=== PATIENT | male | born 1965 | race African-American/Black ===

== ENCOUNTER 2023-11-23 10:41 | Inpatient (IN) | payer OTHER ==
[2023-11-23 11:26] VITALS: BMI 24.2
[2023-11-23] MEDS ORDERED: BISMUTH SUBSALICYLATE 524 MG/30 ML PO PRN (13:59)
[2023-11-23] MEDS ORDERED: BENZOCAINE/MENTHOL (CHLORASEPTIC ) LOZENGE MM PRN (13:59)
[2023-11-23] MEDS ORDERED: guaiFENesin 600 MG TABLET.ER (FP) PO PRN (13:59)
[2023-11-23] MEDS ORDERED: IBUPROFEN 400 MG TABLET (FP) PO PRN (13:59)
[2023-11-23] MEDS ORDERED: MAG HYDROX/AL HYDROX/SIMETH 30 ML UNIT-DOSE CUP PO PRN (13:59)
[2023-11-23] MEDS ORDERED: BENZONATATE 200 MG CAPSULE PO PRN (13:59)
[2023-11-23] MEDS ORDERED: NALOXONE HCL (KLOXXADO) 8 MG SPRAY NS PRN (13:59)
[2023-11-23] MEDS ORDERED: POLYETHYLENE GLYCOL (HEALTHYLAX) 3350 17 GM PACKET PO PRN (13:59)
[2023-11-23] MEDS ORDERED: LOPERAMIDE HCL 2 MG CAPSULE PO PRN (13:59)
[2023-11-23] MEDS ORDERED: NALOXONE HCL 0.4 MG/ML VIAL IM PRN (13:59)
[2023-11-23] MEDS ORDERED: MAGNESIUM HYDROX 2400MG/30ML ORAL SUSPENSION 30 ML CUP PO PRN (13:59)
[2023-11-23] MEDS ORDERED: ACETAMINOPHEN 325 MG TABLET (FP) PO PRN (13:59)
[2023-11-23] MEDS ORDERED: IBUPROFEN 600 MG TABLET (FP) PO PRN (13:59)
[2023-11-23] MEDS ORDERED: DICYCLOMINE HCL 10 MG CAPSULE PO PRN (13:59)
[2023-11-23] MEDS ORDERED: ONDANSETRON *ODT* 4 MG TABLET SL PRN (13:59)
[2023-11-23] MEDS: hydrOXYzine PAMOATE 25 MG CAPSULE (FP) PO PRN (17:22)
[2023-11-23] MEDS: METHOCARBAMOL 500 MG TABLET PO PRN (17:22)
[2023-11-23] MEDS: METOPROLOL TARTRATE 50 MG TABLET (FP) PO ONE (17:33)
[2023-11-23] MEDS: MELATONIN 5 MG TABLETS PO SCH (22:32)
[2023-11-23] MEDS: THIAMINE 100 MG TABLET PO SCH (22:32)
[2023-11-24 09:26] LABS: HEMATOCRIT 37.8 % (35.4-49); HEMOGLOBIN 11.9 GM/dL (11.7-16.9); MCH 24.3 pg (25.7-33.7); MCHC 31.6 g/dl (32.0-35.9); MEAN PLT VOLUME 8.2 fl (7.5-11.1); PLATELET COUNT 287 10^3/uL (134-434); RDW 17.2 % (11.9-15.9); WHITE BLOOD COUNT 5.9 K/mm3 (4.0-10.0)
[2023-11-24 09:48] LABS: POTASSIUM 4.4 mmol/L (3.5-5.1)
[2023-11-24] MEDS ORDERED: chlordiazePOXIDE HCL 25 MG CAPSULE PO PRN (09:56)
[2023-11-24 10:03] LABS: CALCIUM 8.5 mg/dL (8.5-10.1)
[2023-11-24 10:04] LABS: ALBUMIN 3.2 g/dl (3.4-5.0); BLOOD UREA NITROGEN 10.2 mg/dL (7-18)
[2023-11-24 10:07] LABS: CREATININE 0.6 mg/dL (0.55-1.3)
[2023-11-24 10:08] LABS: BILIRUBIN,TOTAL 0.4 mg/dL (0.2-1); TOT PROT 6.4 g/dl (6.4-8.2)
[2023-11-24] MEDS: PRENATAL VITAMINS W/ FOLIC ACID TABLET (FP) PO SCH (10:13)
[2023-11-24] MEDS: NICOTINE 21 MG/24 HOURS TOPICAL PATCH TD SCH (10:13)
[2023-11-24] MEDS: HALOPERIDOL 5 MG TABLET PO SCH (10:24)
[2023-11-24] MEDS: chlordiazePOXIDE HCL 25 MG CAPSULE PO SCH (10:24)
[2023-11-24] MEDS: BENZTROPINE MESYLATE 1 MG TABLET PO SCH (10:24)
[2023-11-24] MEDS: amLODIPine BESYLATE 5 MG TABLET (FP) PO SCH (10:24)
[2023-11-24] MEDS: LACTULOSE 20 GM/30 ML UDC (FOR ORAL USE ONLY) PO SCH (19:15)
[2023-11-25] MEDS: chlordiazePOXIDE HCL 10 MG CAPSULE PO SCH (05:41)
[2023-11-25] MEDS: amLODIPine BESYLATE 10 MG TABLET (FP) PO SCH (10:54)
[2023-11-25] MEDS: NICOTINE POLACRILEX 2 MG GUM BUC PRN (22:16)
[2023-11-26] MEDS ORDERED: chlordiazePOXIDE HCL 10 MG CAPSULE PO PRN
[2023-11-26] MEDS: chlordiazePOXIDE HCL 10 MG CAPSULE PO SCH (05:15)
[2023-11-26 06:20] VITALS: TEMP 97.7
[2023-11-26 09:42] VITALS: BP 153/90; PULSE 96; RESP 18
[2023-11-27] MEDS ORDERED: chlordiazePOXIDE HCL 10 MG CAPSULE PO ONE (05:00)
== END 2023-11-26 10:46 | disposition home or self-care (01) | DRG 897 ==
LOC: YASAS 10:41 → Y6N 14:33
PROVIDERS: ADMIT Allergy & Immunology; ATTEND Surgery
PROC: HZ2ZZZZ Detoxification Services for Substance Abuse Treatment (ICD-10-PCS; principal; 2023-11-23)
DX: F10.230 Alcohol dependence with withdrawal, uncomplicated (principal); Z59.01 Sheltered homelessness; F12.20 Cannabis dependence, uncomplicated; F17.210 Nicotine dependence, cigarettes, uncomplicated; F20.9 Schizophrenia, unspecified; I10 Essential (primary) hypertension
CPT/HCPCS: 36415; 80053; 80305; 80307; 82140; 85027; 86780; 93005; 93010

== ENCOUNTER 2024-06-16 13:18 | Inpatient (IN) | payer OTHER ==
[2024-06-16 14:18] VITALS: BMI 24.2
[2024-06-16] MEDS ORDERED: BISMUTH SUBSALICYLATE 262 MG/15 ML BTL PO PRN (14:40)
[2024-06-16] MEDS ORDERED: MAG HYDROX/AL HYDROX/SIMETH 30 ML UNIT-DOSE CUP PO PRN (14:40)
[2024-06-16] MEDS ORDERED: BENZOCAINE/MENTHOL (CHLORASEPTIC ) LOZENGE MM PRN (14:40)
[2024-06-16] MEDS ORDERED: MAGNESIUM HYDROX 2400MG/30ML ORAL SUSPENSION 30 ML CUP PO PRN (14:40)
[2024-06-16] MEDS ORDERED: DICYCLOMINE HCL 10 MG CAPSULE PO PRN (14:40)
[2024-06-16] MEDS ORDERED: LORazepam 1 MG TABLET PO PRN (14:40)
[2024-06-16] MEDS ORDERED: BENZONATATE 200 MG CAPSULE PO PRN (14:40)
[2024-06-16] MEDS ORDERED: IBUPROFEN 400 MG TABLET (FP) PO PRN (14:40)
[2024-06-16] MEDS ORDERED: IBUPROFEN 600 MG TABLET (FP) PO PRN (14:40)
[2024-06-16] MEDS ORDERED: NICOTINE POLACRILEX 2 MG GUM BUC PRN (14:40)
[2024-06-16] MEDS ORDERED: guaiFENesin 600 MG TABLET.ER (FP) PO PRN (14:40)
[2024-06-16] MEDS ORDERED: ONDANSETRON *ODT* 4 MG TABLET SL PRN (14:40)
[2024-06-16] MEDS ORDERED: POLYETHYLENE GLYCOL (HEALTHYLAX) 3350 17 GM PACKET PO PRN (14:40)
[2024-06-16] MEDS ORDERED: NICOTINE POLACRILEX 2 MG LOZENGE BC PRN (14:40)
[2024-06-16] MEDS ORDERED: LOPERAMIDE HCL 2 MG CAPSULE PO PRN (14:40)
[2024-06-16] MEDS ORDERED: NALOXONE (NARCAN) HCL 4 MG/0.1 ML SPRAY NS PRN (14:40)
[2024-06-16] MEDS ORDERED: amLODIPine BESYLATE 10 MG TABLET (FP) PO SCH (14:45)
[2024-06-16] MEDS: ACETAMINOPHEN 325 MG TABLET (FP) PO PRN (17:51)
[2024-06-16] MEDS: amLODIPine BESYLATE 10 MG TABLET (FP) PO SCH (17:51)
[2024-06-16] MEDS: LORazepam 2 MG TABLET PO SCH (23:25)
[2024-06-16] MEDS: THIAMINE 100 MG TABLET PO SCH (23:26)
[2024-06-16] MEDS: MELATONIN 5 MG TABLETS PO SCH (23:26)
[2024-06-17] MEDS: PRENATAL VITAMINS W/ FOLIC ACID TABLET (FP) PO SCH (10:14)
[2024-06-18] MEDS: LORazepam 1 MG TABLET PO SCH (05:54)
[2024-06-18] MEDS: METHOCARBAMOL 500 MG TABLET PO PRN (09:26)
[2024-06-18] MEDS: hydrOXYzine PAMOATE 25 MG CAPSULE (FP) PO PRN (09:26)
[2024-06-18] MEDS: LACTULOSE 20 GM/30 ML UDC (FOR ORAL USE ONLY) PO SCH (09:26)
[2024-06-18 09:34] LABS: POTASSIUM 4.2 mmol/L (3.5-5.1)
[2024-06-18 09:36] LABS: BLOOD UREA NITROGEN 7.1 mg/dL (7-18); CALCIUM 9.7 mg/dL (8.5-10.1)
[2024-06-18 09:37] LABS: ALBUMIN 3.7 g/dl (3.4-5.0)
[2024-06-18 09:38] LABS: CREATININE 0.6 mg/dL (0.55-1.3)
[2024-06-18 09:41] LABS: BILIRUBIN,TOTAL 0.2 mg/dL (0.2-1); TOT PROT 7.7 g/dl (6.4-8.2)
[2024-06-18 09:47] LABS: HEMATOCRIT 40.5 % (35.4-49); HEMOGLOBIN 12.3 GM/dL (11.7-16.9); MCHC 30.4 g/dl (32.0-35.9); MEAN PLT VOLUME 8.3 fl (7.5-11.1); PLATELET COUNT 274 10^3/uL (134-434); RBC 5.12 M/mm3 (4.00-5.60); WHITE BLOOD COUNT 6.5 K/mm3 (4.0-10.0)
[2024-06-18] MEDS: RIFAXIMIN 200 MG TABLET PO SCH (14:21)
[2024-06-19] MEDS ORDERED: LORazepam 0.5 MG TABLET PO PRN
[2024-06-19] MEDS: LORazepam 0.5 MG TABLET PO SCH (05:53)
[2024-06-20] MEDS: LORazepam 0.5 MG TABLET PO ONE (05:52)
[2024-06-20 09:01] VITALS: BP 125/79; PULSE 62; RESP 16; TEMP 97.7
== END 2024-06-20 11:21 | disposition home or self-care (01) | DRG 897 ==
LOC: YASAS 13:18 → Y6N 17:06
PROVIDERS: ADMIT Allergy & Immunology; ATTEND Surgery
PROC: HZ2ZZZZ Detoxification Services for Substance Abuse Treatment (ICD-10-PCS; principal; 2024-06-16)
DX: F10.230 Alcohol dependence with withdrawal, uncomplicated (principal); Z59.01 Sheltered homelessness; F12.20 Cannabis dependence, uncomplicated; F17.210 Nicotine dependence, cigarettes, uncomplicated; F20.9 Schizophrenia, unspecified; I10 Essential (primary) hypertension; R79.89 Other specified abnormal findings of blood chemistry; Z56.0 Unemployment, unspecified
CPT/HCPCS: 36415; 80053; 80305; 80307; 82140; 82962; 85027; 86780